=== PATIENT | female | born 1960 ===

== ENCOUNTER 2016-09-27 12:52 | Day surgery (SDC) | payer OTHER ==
[2016-09-27 05:48] VITALS: BMI 33.6
[2016-09-27] MEDS ORDERED: Iohexol 350 MG/100 ML VIAL ONE (14:08)
[2016-09-27] MEDS ORDERED: Lidocaine 2% Inj (20ml) ONE (14:08)
[2016-09-27] MEDS ORDERED: Iohexol 350mgl/ml 50 ML ONE (14:08)
[2016-09-27] MEDS ORDERED: Phenylephrine 10 mg/ml Inj ONE (14:08)
[2016-09-27] MEDS ORDERED: Midazolam 2 MG/2 ML VIAL ONE (14:31)
[2016-09-27] MEDS ORDERED: Sodium Chloride 0.9% 500 ML IV STA (15:00)
--- NOTE | 2016-09-27 15:34 | HP ---
The patient is a 56-year-old female who has a history of hypertension, diabetes mellitus, pr esented to [facility] with chest pain and lateral ischemic Q wave changes. Myocardial infarction wa s ruled out. Cardiac catheterization was recommended. The procedure and its risks were fully explai felicia to the patient, who understood them and agreed for the procedure. PHYSICAL EXAMINATION: GENERAL: The patient is a middle-aged female who does not appear to be in any distress. VITAL SIGNS: Stable. HEENT: Normocephalic, atraumatic. NECK: No JVD. CHEST: Clear. HEART: S1, S2 regular. ABDOMEN: Soft. EXTREMITIES: No edema. ASSESSMENT: 1. Chest pain and lateral ischemic EKG changes. 2. Hypertension and diabetes mellitus. PLAN: The patient will undergo left heart catheterization with the possibility of intervention. The procedure and its relative risks were fully explained to the patient and her daughter in detail. Th e patient understood, agreed and signed the written consent. Yasir Sosa MD cc: [id number] TT: 09/27/2016 15:34:05 en
--- NOTE | 2016-09-27 16:17 | CARDCATH ---
PROCEDURE DATE: 09/27/2016 HISTORY: The patient is a 56-year-old female who has history of hypertension, diabetes aubree itus, being followed in the clinic, presents because of retrosternal chest pain, typical in nature, r adiating to the left arm. EKG was consistent with dynamic ischemic lateral Q-wave changes. Myocardi al infarction was ruled out. Cardiac catheterization was recommended. The procedure and its risks f ully explained to the patient who understood them and agreed for the procedure. The patient agreed f or the transfer to [facility]. The patient's daughter was involved in all the decision making and she was with her at [place] [facility]. PROCEDURE: After local infiltration with 1% lidocaine a 6-Sammarinese sheath was placed in right femoral artery. Left and right coronary angiography were performed with 6-Sammarinese JL4 and JR4 diagnostic cath eter. Left ventriculogram was performed with 6-Sammarinese pigtail catheter. The patient tolerated the p rocedure well without any complications. ANGIOGRAPHIC FINDINGS: Selective injection of left coronary artery revealed left main to be a normal vessel, left main bifurcated into medium sized left anterior descending and medium sized circumflex artery. The left anterior descending caliber narrowed significantly in its middle course. There was no significant disease in the left coronary circulation. Selective injection of right coronary nemo ry revealed a medium-sized dominant vessel. This was angiographically unremarkable. Left ventriculo gram performed in FLANNERY projection revealed normal wall motion. Ejection fraction estimated at 55%. CONCLUSION: Unremarkable coronary circulation and normal ejection fraction. RECOMMENDATIONS: Search for noncardiac cause of chest pain is recommended. Yasir Sosa MD cc: [id number] TT: 09/27/2016 16:16:31 sadie
[2016-09-27 18:10] VITALS: TEMP 97.7
--- NOTE | 2016-09-27 20:08 | CP.PCM.PN ---
Subjective - Date & Time of Evaluation Date of Evaluation: 09/27/16 Time of Evaluation: 20:07 - Subjective Subjective: Patient was seen at bedside. Complained of low back pain. Has history of low back pain and takes Alleve or Ibuprofen for it. Has no other complaints now. She is S/P cardiac catheterization today. Has no complaints of abdominal pain, groin pain. This 56 year old woman from [facility] admitted after she had cardiac catheterization done. Has PMH of HTN,DM. Objective - Vital Signs/Intake and Output Vital Signs (last 24 hours): Temp Pulse Resp BP Pulse Ox 97.7 F 77 18 118/73 09/27/16 18:09 09/27/16 18:09 09/27/16 18:09 09/27/16 18:09 - Medications Medications: Current Medications Sodium Chloride (Sodium Chloride 0.9%) 500 mls @ 40 mls/hr IV .[id number] STA Stop: 09/28/16 03:29 Last Admin: 09/27/16 17:12 Dose: 40 mls/hr - Constitutional Appears: Well, No Acute Distress - Head Exam Head Exam: ATRAUMATIC, NORMAL INSPECTION, NORMOCEPHALIC - Eye Exam Eye Exam: Normal appearance - ENT Exam ENT Exam: Normal External Ear Exam - Neck Exam Neck Exam: Normal Inspection - Respiratory Exam Respiratory Exam: NORMAL BREATHING PATTERN - Cardiovascular Exam Cardiovascular Exam: absent: JVD - GI/Abdominal Exam GI & Abdominal Exam: absent: Distended, Tenderness - Rectal Exam Rectal Exam: Deferred - Extremities Exam Additional comments: Right inguinal dressing clean , dry, no evidence of hematoma noted. Good peripheral pulse present. - Back Exam Back Exam: NORMAL INSPECTION - Neurological Exam Neurological Exam: Alert, Oriented x3 - Psychiatric Exam Psychiatric exam: Normal Affect, Normal Mood - Skin Skin Exam: Normal Color Assessment and Plan - Assessment and Plan (Free Text) Assessment: A/P:Lower back pain. S/P cardiac catheterization. DM. HTN. Naproxen 550 mg PO stat. Mylanta 30 CC PO stat.
[2016-09-27] MEDS ORDERED: Naproxen 550 mg Tab PO STA (20:44)
[2016-09-27] MEDS ORDERED: Alum-Mag Hydrox-Simethicone Susp (30 mL) PO STA (20:44)
[2016-09-27 22:01] VITALS: BP 121/66; PULSE 84; RESP 18
== END 2016-09-27 22:15 ==
LOC: CATH 12:52 → 2RSO 15:28 → CATH 22:15
PROVIDERS: ATTEND Specialist
DX: R07.89 Other chest pain (principal); I10 Essential (primary) hypertension; E11.9 Type 2 diabetes mellitus without complications; M54.5 Low back pain; Z79.84 Long term (current) use of oral hypoglycemic drugs
CPT/HCPCS: 93458; 99152; C1760; C1769; C2629; J1644; J2250; J3010; J7040 ×2; Q9967